=== PATIENT | male | born 1960 ===

== ENCOUNTER 2018-04-06 13:30 | Emergency (ER) | payer OTHER ==
[2018-04-06 13:31] VITALS: BMI 27.3
[2018-04-06 13:40] VITALS: TEMP 98.4; O2SAT 98
[2018-04-06 14:39] LABS: URINE BILIRUBIN NEGATIVE (NEGATIVE); URINE BLOOD 3+ (NEGATIVE); URINE CLARITY Hazy (Clear); URINE COLOR Red (YELLOW); URINE GLUCOSE (UA) NORMAL (Normal); URINE LEUKOCYTE ESTERASE TRACE Leu/uL (Negative); URINE PROTEIN 2+ mg/dL (NEGATIVE); URINE UROBILINOGEN NORMAL mg/dL (0.2-1.0)
[2018-04-06 15:15] LABS: BASO % 0.2 % (0.0-2.0); EOS % 0.4 % (0.0-4.0); HEMOGLOBIN 16.4 g/dL (12.0-18.0); LYMPH # 2.1 K/uL (1.0-4.3); MEAN CELL VOLUME 88.5 fL (80.0-94.0); MEAN PLATELET VOLUME 7.5 fL (7.2-11.7); MONO # 0.4 K/uL (0.0-0.8); MONO % 3.8 % (0.0-10.0); NEUT % 77.6 % (50.0-75.0); RBC 5.3 Mil/uL (4.40-5.90); WHITE BLOOD COUNT 11.6 K/uL (4.8-10.8)
[2018-04-06 15:30] LABS: ALB/GLOB RATIO 1.5 (1.0-2.1); ALBUMIN 4.2 g/dL (3.5-5.0); ALT/SGPT 9 U/L (21-72); AST/SGOT 21 U/L (17-59); BLOOD UREA NITROGEN 15 mg/dL (9-20); CALCIUM 9.4 mg/dl (8.6-10.4); GFR AFRICAN-AMERICAN > 60; GFR NON-AFRICAN AMERICAN > 60
--- NOTE | 2018-04-06 15:33 | C.PDOC ---
History Of Present Illness 57 y/o male with a history of kidney stones presents to the ED for dark urine. Patient states it began 3 days ago when he noticed today it was bloodier in color associated with mild dysuria intermittently. He denies any flank pain, abdominal pain, fever, or chills. Of note, his kidney stones occurred 20 years ago. PMD: None provided Time Seen by Provider: 04/06/18 14:30 Chief Complaint (Nursing): Male Genitourinary History Per: Patient History/Exam Limitations: no limitations Onset/Duration Of Symptoms: Days (x3) Current Symptoms Are (Timing): Still Present Associated Symptoms: Urinary Symptoms. denies: Fever, Chills Past Medical History Reviewed: Historical Data, Nursing Documentation, Vital Signs Vital Signs: Last Vital Signs Temp 98.4 F 04/06/18 13:39 Pulse 97 H 04/06/18 13:39 Resp 20 04/06/18 13:39 BP 160/90 H 04/06/18 13:39 Pulse Ox 98 04/06/18 15:38 - Medical History PMH: HTN, Hypercholesterolemia Surgical History: CABG Family History: States: Unknown Family Hx - Social History Hx Tobacco Use: Yes Hx Alcohol Use: No Hx Substance Use: No - Immunization History Hx Tetanus Toxoid Vaccination: No Hx Influenza Vaccination: No Hx Pneumococcal Vaccination: No Review Of Systems Constitutional: Negative for: Fever, Chills Genitourinary: Positive for: Dysuria, Hematuria Physical Exam - Physical Exam Appears: Well, No Acute Distress Skin: Normal Color, Warm, Dry Head: Atraumatic, Normacephalic Eye(s): bilateral: Normal Inspection, PERRL, EOMI Nose: Normal Throat: Normal Neck: Normal, Supple Cardiovascular: Rhythm Regular, No Murmur Respiratory: Normal Breath Sounds, No Decreased Breath Sounds Gastrointestinal/Abdominal: Normal Exam, Soft, No Tenderness Back: Normal Inspection, No CVA Tenderness, No Vertebral Tenderness Male Genital: Normal Inspection Extremity: Normal ROM, No Pedal Edema, No Deformity Neurological/Psych: Oriented x3 ED Course And Treatment - Laboratory Results Result Diagrams: 04/06/18 15:12 04/06/18 15:12 Lab Interpretation: Abnormal (+Hematuria) O2 Sat by Pulse Oximetry: 98 (RA) Pulse Ox Interpretation: Normal - CT Scan/US CT abdomen and pelvis Other Rad Studies (CT/US): Read By Radiologist, Radiology Report Reviewed CT/US Interpretation: Accession No. : [id number]. Patient Name / ID : GUS ALMONTE / [id number]. Exam Date : 04/06/2018 15:26:02 ( Approved ). Study Comment : Sex / Age : M / 57Y. Creator : Sandip Barrios MD. Dictator : Pay Agent : Professor Of Nursing : Sandip Barrios MD. Approver2 : Report Date : 04/06/2018 15:52:57. My Comment : . PROCEDURE: CT scan abdomen and pelvis dated 04/06/2018. HISTORY: Abdominal pain. COMPARISON: No prior. TECHNIQUE: Contiguous axial images of the abdomen and pelvis performed without oral or intravenous contrast material. Additional 2D sagittal and coronal reformats generated. Radiation dose: Total exam DLP =. This CT exam was performed using one or more of the following dose reduction techniques: Automated exposure control, adjustment of the mA and/or kV according to patient size, and/or use of iterative reconstruction technique. FINDINGS: LOWER THORAX: Lung bases clear. No infiltrate effusion or basilar pneumothorax. There is a tiny hiatal hernia. LIVER: Unremarkable. No gross lesion or ductal dilatation. GALLBLADDER AND BILE DUCTS: Gallbladder appears incompletely distended likely due to recent nonfasting state. No evidence of cholelithiasis. PANCREAS: Unremarkable. No mass. No ductal dilatation. SPLEEN : Unremarkable. No splenomegaly. ADRENALS: Unremarkable. KIDNEYS AND URETERS : Kidneys demonstrate symmetric nephrograms. There is a large exophytic cyst arising from the upper pole right kidney that measures approximately 6.2 x 5.8 cm. There is a small approximately 3.6 mm calculus in the left UVJ region with only minimal prominence of the distal ureter. BLADDER: Urinary bladder incompletely distended which in part accounts for thick-walled appearance. Muscular hypertrophy presumably contributes however the possibility of other intrinsic/ invasive wall lesion not completely excluded. REPRODUCTIVE: Prostate gland not grossly unremarkable. APPENDIX: Normal appendix best seen on coronal sequence image number [id number]. BOWEL: Evaluation of the bowel is limited due to the lack of oral contrast material. Stomach is incompletely distended which presumably in part accounts for thick-walled appearance. Visualized loops of small bowel exhibit normal contour and caliber. No evidence acute mechanical small bowel obstruction. Scattered colonic diverticula are present. No radiographic evidence acute diverticulitis. Moderate amount of stool seen within distal sigmoid and rectum suggesting mild fecal retention. There is mild submucosal edema within the wall of the cecum suggesting chronic sequela of inflammation. PERITONEUM: Unremarkable. No fluid collection. No free air. Tiny fat containing umbilical hernia Small bilateral fat containing inguinal hernias. . LYMPH NODES: Few small nonspecific retroperitoneal lymph nodes are present. VASCULATURE: Unremarkable. No aortic aneurysm. BONES: Minor multilevel degenerative spondylosis of the lumbar and to a lesser degree lower lobe thoracic spine. OTHER FINDINGS: None. IMPRESSION: There is a small approximately 3.6 mm calculus in the left UVJ region with only minimal prominence of the distal ureter. Large partially exophytic right renal cyst as above. Scattered colonic diverticula without radiographic evidence of acute diverticulitis. No evidence acute appendicitis no evidence of cholelithiasis. See above discussion for additional details Reevaluation Time: 16:32 Reassessment Condition: Improved Medical Decision Making Medical Decision Making: Time: Impression: Hematuria r/o renal stone, bladder or renal neoplasia Initial Plan: * Cat Scan abdomen/pelvis w/o PO * Urine Culture Scribe Attestation: Documented by Michelle Thompson acting as a scribe Gaudencio Harding MD. MD Anaya Attestation: All medical record entries made by the Scribe were at my direction and personally dictated by me. I have reviewed the chart and agree that the record accurately reflects my personal performance of the history, physical exam, medical decision making, and the department course for this patient. I have also personally directed, reviewed, and agree with the discharge instructions and disposition. Disposition Counseled Patient/Family Regarding: Studies Performed, Diagnosis, Need For Followup - Disposition Referrals: [facility] [Outside] Disposition: HOME/ ROUTINE Disposition Time: 16:33 Condition: STABLE Instructions: Kidney Stones (DC) Forms: [employer] (Sami) Print Language: MAORI - Clinical Impression Clinical Impression: Kidney stone on left side
--- NOTE | 2018-04-06 15:54 | CT ---
PROCEDURE: CT scan abdomen and pelvis dated 04/06/2018 HISTORY: Abdominal pain. COMPARISON: No prior TECHNIQUE: Contiguous axial images of the abdomen and pelvis performed without oral or intravenous contrast material. Additional 2D sagittal and coronal reformats generated. Radiation dose: Total exam DLP = This CT exam was performed using one or more of the following dose reduction techniques: Automated exposure control, adjustment of the mA and/or kV according to patient size, and/or use of iterative reconstruction technique. FINDINGS: LOWER THORAX: Lung bases clear. No infiltrate effusion or basilar pneumothorax. There is a tiny hiatal hernia. LIVER: Unremarkable. No gross lesion or ductal dilatation. GALLBLADDER AND BILE DUCTS: Gallbladder appears incompletely distended likely due to recent nonfasting state. No evidence of cholelithiasis. PANCREAS: Unremarkable. No mass. No ductal dilatation. SPLEEN: Unremarkable. No splenomegaly. ADRENALS: Unremarkable. KIDNEYS AND URETERS: Kidneys demonstrate symmetric nephrograms. There is a large exophytic cyst arising from the upper pole right kidney that measures approximately 6.2 x 5.8 cm. There is a small approximately 3.6 mm calculus in the left UVJ region with only minimal prominence of the distal ureter BLADDER: Urinary bladder incompletely distended which in part accounts for thick-walled appearance. Muscular hypertrophy presumably contributes however the possibility of other intrinsic/ invasive wall lesion not completely excluded. REPRODUCTIVE: Prostate gland not grossly unremarkable. APPENDIX: Normal appendix best seen on coronal sequence image number [id number] BOWEL: Evaluation of the bowel is limited due to the lack of oral contrast material. Stomach is incompletely distended which presumably in part accounts for thick-walled appearance. Visualized loops of small bowel exhibit normal contour and caliber. No evidence acute mechanical small bowel obstruction. Scattered colonic diverticula are present. No radiographic evidence acute diverticulitis. Moderate amount of stool seen within distal sigmoid and rectum suggesting mild fecal retention. There is mild submucosal edema within the wall of the cecum suggesting chronic sequela of inflammation. PERITONEUM: Unremarkable. No fluid collection. No free air. Tiny fat containing umbilical hernia Small bilateral fat containing inguinal hernias. . LYMPH NODES: Few small nonspecific retroperitoneal lymph nodes are present VASCULATURE: Unremarkable. No aortic aneurysm. BONES: Minor multilevel degenerative spondylosis of the lumbar and to a lesser degree lower lobe thoracic spine OTHER FINDINGS: None. IMPRESSION: There is a small approximately 3.6 mm calculus in the left UVJ region with only minimal prominence of the distal ureter. Large partially exophytic right renal cyst as above. Scattered colonic diverticula without radiographic evidence of acute diverticulitis. No evidence acute appendicitis no evidence of cholelithiasis See above discussion for additional details
[2018-04-06 16:45] VITALS: BP 163/97; PULSE 75; RESP 18
== END 2018-04-06 16:45 | disposition home or self-care (01) ==
LOC: C.ER 13:30
DX: N20.0 Calculus of kidney (principal); Z87.442 Personal history of urinary calculi

== ENCOUNTER 2018-04-07 16:45 | Emergency (ER) | payer OTHER ==
[2018-04-07 16:50] VITALS: BMI 27.4
[2018-04-07 16:57] VITALS: RESP 20
[2018-04-07] MEDS ORDERED: Oxycodone/Acetaminophen 5/325 mg Tab PO STA (17:32)
--- NOTE | 2018-04-07 17:32 | C.PDOC ---
History Of Present Illness 57 year old male presents to the ED for evaluation of constant left flank pain which began this morning. Patient states he took two tablets of Motrin without relief. Patient was evaluated in this ED yesterday for same complaint, dc home with motrin. dx with 3 mm kidney stone. Patient states symptoms are unrelated to food intake and denies fever, chills, constipation, and diarrhea at this time. Time Seen by Provider: 04/07/18 17:18 Chief Complaint (Nursing): Abdominal Pain History Per: Patient History/Exam Limitations: no limitations Onset/Duration Of Symptoms: Hrs Current Symptoms Are (Timing): Still Present Radiation Of Pain To:: Flank (left ) Quality Of Discomfort: "Pain" Associated Symptoms: denies: Fever, Chills, Diarrhea, Constipation Exacerbating Factors: denies: Food Additional History Per: Patient Past Medical History Reviewed: Historical Data, Nursing Documentation, Vital Signs Vital Signs: Last Vital Signs Temp 97.8 F 04/07/18 18:25 Pulse 75 04/07/18 18:25 Resp 20 04/07/18 18:25 BP 153/89 H 04/07/18 18:25 Pulse Ox 99 04/07/18 18:25 - Medical History PMH: HTN, Hypercholesterolemia Surgical History: CABG Family History: States: Unknown Family Hx - Social History Hx Tobacco Use: Yes Hx Alcohol Use: No Hx Substance Use: No - Immunization History Hx Tetanus Toxoid Vaccination: No Hx Influenza Vaccination: No Hx Pneumococcal Vaccination: No Review Of Systems Constitutional: Negative for: Fever, Chills Gastrointestinal: Negative for: Diarrhea, Constipation Musculoskeletal: Positive for: Other (left flank pain ) Physical Exam - Physical Exam Appears: Non-toxic, No Acute Distress Skin: Normal Color, Warm, Dry Head: Atraumatic, Normacephalic Eye(s): bilateral: Normal Inspection Oral Mucosa: Moist Neck: Supple Chest: Symmetrical, No Deformity, No Tenderness Cardiovascular: Rhythm Regular, No Murmur Respiratory: Normal Breath Sounds, No Rales, No Rhonchi, No Wheezing Gastrointestinal/Abdominal: Soft, No Tenderness, No Guarding, No Rebound Back: Other (mild, left flank tenderness ) Extremity: Normal ROM, Capillary Refill (less than 2 seconds ) Neurological/Psych: Oriented x3, Normal Speech, Normal Cognition ED Course And Treatment O2 Sat by Pulse Oximetry: 100 (on RA ) Pulse Ox Interpretation: Normal Medical Decision Making Medical Decision Making: Progress: Flomax PO and Percocet PO administered. seen yesterday for 3 mm stone. pt comfortable appearing on exam. specifcally requesting stronger analgesia and dc home. does not wish to wait in er for further reassess. i also offered him admission if he has persistent pain. he declines. Disposition - Disposition Referrals: [facility] [Outside] [facility] [Outside] Trell Le Jr., MD [Staff Provider] - Disposition: HOME/ ROUTINE Disposition Time: 06:00 Condition: STABLE Additional Instructions: please follow up with your doctor. return to er with worsening symptoms or concerns. Prescriptions: oxyCODONE/Acetaminophen [Percocet 5/325 mg Tab] 1 ea PO Q6 PRN #10 tab PRN Reason: Pain, Mild (1-3) Tamsulosin [Flomax] 0.4 mg PO DAILY #10 cap Instructions: Kidney Stones (DC) Forms: [employer] (Macanese) - Clinical Impression Clinical Impression: Kidney stone - Scribe Statement The provider has reviewed the documentation as recorded by the Scribe (Vanessa Do) Provider Attestation: All medical record entries made by the Scribe were at my direction and personally dictated by me. I have reviewed the chart and agree that the record accurately reflects my personal performance of the history, physical exam, medical decision making, and the department course for this patient. I have also personally directed, reviewed, and agree with the discharge instructions and disposition.
[2018-04-07] MEDS ORDERED: Oxycodone/Acetaminophen 5/325 mg Tab ONE (17:42)
[2018-04-07 18:26] VITALS: BP 153/89; PULSE 75; TEMP 97.8
[2018-04-07 19:35] VITALS: O2SAT 100
== END 2018-04-07 18:25 | disposition home or self-care (01) ==
LOC: C.ER 16:45
DX: N20.0 Calculus of kidney (principal)